=== PATIENT | male | born 1995 | race Caucasian/White ===

== ENCOUNTER 2019-02-08 23:17 | Emergency (ER) | payer OTHER ==
[~2019-02-08] VITALS: Ht 188 cm; Wt 80.0 kg
[2019-02-08 23:28] VITALS: BP 134/81
--- NOTE | 2019-02-08 23:39 | NUR ---
[facility] as he stated that he wanted to kill himself, pt was being released from shelter at the time
--- NOTE | 2019-02-08 23:40 | NUR ---
all clothing removed from pt and placed in locked locker, garage doors down in room and room secure sitter at door
[2019-02-08 23:59] LABS: AMPHETAMINE SCREEN, URINE Negative (Negative); BARBITURATE SCREEN, URINE Negative (Negative); BENZODIAZEPINE SCREEN, URINE Negative (Negative); CANNABINOID SCREEN, URINE Negative (Negative); COCAINE SCREEN, URINE Negative (Negative); METHADONE SCREEN, URINE Negative (Negative); OPIATE SCREEN, URINE Negative (Negative)
[2019-02-09 00:05] LABS: BASOPHILS # (AUTO) 0.07 x10^3/uL (0-0.1); BASOPHILS % (AUTO) 1 % (0-1); EOSINOPHILS % (AUTO) 2 % (1-7); LYMPHOCYTES % (AUTO) 31 % (22-44); MD NO; MEAN CORPUSCULAR HEMOGLOBIN 29.8 pg (27.5-34.5); MEAN CORPUSCULAR HGB CONC 33.1 g/dL (33.2-36.2); MEAN PLATELET VOLUME 8.5 fL (7.4-10.4); MONOCYTES # (AUTO) 0.66 x10^3/uL (0.2-0.8); MONOCYTES % (AUTO) 10 % (2-9); NEUTROPHILS # (AUTO) 3.79 x10^3/uL (1.8-6.8); NEUTROPHILS % (AUTO) 56 % (42-75); PLATELET COUNT 200 x10^3/uL (130-400); RED BLOOD COUNT 5.12 x10^6/uL (4.38-5.82)
[2019-02-09 00:14] LABS: ALANINE AMINOTRANSFERASE 83 U/L (12-78); ALBUMIN 3.3 g/dL (3.4-5.0); ANION GAP 5 mmol/L (5-15); CALCIUM 8.3 mg/dL (8.5-10.1); CHLORIDE 107 mmol/L (98-107); CREATININE 0.66 mg/dL (0.7-1.3)
[2019-02-09 00:16] LABS: ALKALINE PHOSPHATASE 48 U/L (45-117); BILIRUBIN,TOTAL 0.4 mg/dL (0.2-1.0); TOTAL PROTEIN 7.3 g/dL (6.4-8.2)
[2019-02-09 00:25] LABS: SALICYLATE LEVEL < 1.7 mg/dL (2.8-20.0)
--- NOTE | 2019-02-09 01:31 | NUR ---
telepsych initiated. [id number] bot placed at bs.
--- NOTE | 2019-02-09 01:51 | NUR ---
pt sleeping in nad
--- NOTE | 2019-02-09 04:25 | NUR ---
pt sleepingin nad awaiting tele psych
--- NOTE | 2019-02-09 05:30 | NUR ---
tele psych consult complete
--- NOTE | 2019-02-09 06:01 | NUR ---
Patient/Caregiver given discharge instructions and they have confirmed that they understand the instructions. Patient ambulatory with steady gait.
== END 2019-02-09 06:03 | disposition home or self-care (01) ==
LOC: ED 02-09 00:54
DX: F39 Unspecified mood [affective] disorder (principal); F25.9 Schizoaffective disorder, unspecified; R45.851 Suicidal ideations; I10 Essential (primary) hypertension
CPT/HCPCS: 36415; 80053; 80307; 85025; 99284

== ENCOUNTER 2019-08-23 21:59 | Emergency (ER) | payer OTHER ==
[~2019-08-23] VITALS: Ht 177.8 cm; Wt 87.0 kg
[2019-08-23 22:11] VITALS: BP 141/88
[2019-08-23] MEDS ORDERED: NEOSPORIN OINT. PKT 1 PACKET ONE (23:01)
== END 2019-08-23 23:32 | disposition home or self-care (01) ==
LOC: ED 23:15
DX: L03.116 Cellulitis of left lower limb (principal); L03.115 Cellulitis of right lower limb; L21.9 Seborrheic dermatitis, unspecified; F15.10 Other stimulant abuse, uncomplicated; F12.10 Cannabis abuse, uncomplicated; F17.210 Nicotine dependence, cigarettes, uncomplicated; I10 Essential (primary) hypertension; Z72.9 Problem related to lifestyle, unspecified
CPT/HCPCS: 99283